=== PATIENT | female | born 1985 | race Two or more races ===

== ENCOUNTER 2025-05-14 15:21 | Emergency (ER) | payer OTHER ==
[~2025-05-14] VITALS: Ht 172.7 cm; Wt 62.6 kg
[2025-05-14 15:29] VITALS: BP 130/77; O2SAT 99
[2025-05-14] MEDS ORDERED: 0.9 % SODIUM CHLORIDE 500 ML IV STA (17:21)
[2025-05-14] MEDS ORDERED: FAMOTIDINE/PF 20 MG/2 ML VIAL IV PUSH STA (17:22)
[2025-05-14] MEDS ORDERED: FAMOTIDINE/PF 20 MG/2 ML VIAL ONE (17:26)
[2025-05-14] MEDS ORDERED: BARIUM SULFATE 450 ML ORAL.SUSP PO ONE (17:30)
[2025-05-14 17:51] LABS: BASO % 0.8 % (0.1-1.2); EOS # 0.23 (0.04-0.54); EOS % 2.8 % (0.7-7.0); LYMPH # 2.81 (1.18-3.74); LYMPH % 34.1 % (19.3-53.1); MEAN PLATELET VOLUME 10.50 fl (9.4-12.4); MONO # 0.39 (0.24-0.82); MONO % 4.7 % (4.7-12.5); NEUT # 4.72 (1.56-6.13); NEUT % 57.4 % (34.0-71.1); RED CELL DISTRIBUTION WIDTH 11.8 % (11.6-14.4)
[2025-05-14 18:24] LABS: BUN CREA RATIO 11 (7.0-25.0); CREATININE SERUM 0.83 mg/dL (0.55-1.02); GFR 77.35; GLUCOSE FASTING 136 mg/dL (65-100); OSMOLALITY SERUM 284 MOSM/KG (275-295)
[2025-05-14 18:31] LABS: HCG QUANTITATIVE < 1 mUI/mL (1-3)
[2025-05-14 18:43] LABS: URINE APPEARANCE Clear; URINE BILIRRUBIN Negative (NEGATIVE); URINE BLOOD Negative; URINE COLOR Yellow; URINE GLUCOSE Negative (NEGATIVE); URINE KETONE Negative (NEGATIVE); URINE LEUKOCYTE Negative; URINE NITRATE Negative; URINE PROTEIN Negative (NEGATIVE); URINE UROBILINOGEN 1.0 E.U./dl
[2025-05-14 18:49] LABS: URINE BACTERIA 1005.4 uL (0.0-1933); URINE EPITHELIAL CELLS 21.9 uL (0.0-38.8); URINE RBC 5.8 uL (0.0-20.8); URINE WBC 5.0 uL (0.0-23.2)
[2025-05-14 18:51] LABS: URINE CAST 0.29 uL (0.0-1.40)
[2025-05-14] MEDS ORDERED: PEPCID AC20 MG PO (22:06)
[2025-05-14] MEDS ORDERED: OMEPRAZOLE MAGN20 MG PO (22:06)
== END 2025-05-14 22:34 | disposition home or self-care (01) ==
LOC: ER 15:21
PROVIDERS: Emergency Medicine
DX: K21.9 Gastro-esophageal reflux disease without esophagitis (principal); K59.00 Constipation, unspecified; Z97.5 Presence of (intrauterine) contraceptive device